=== PATIENT | female | born 1940 | race Caucasian/White ===

== ENCOUNTER → 2016-09-04 | Outpatient (CLI) | payer MEDICARE, BC ==
--- NOTE | 2016-09-04 11:59 | XR ---
EXAMINATION TYPE: XR chest 2V DATE OF EXAM: 09/04/2016 11:54 AM COMPARISON: 03/09/2015 HISTORY: Annual physical FINDINGS: The lungs are clear and there is no pneumothorax, pleural effusion, or focal pneumonia. 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 Heart is enlarged. IMPRESSION: 1. No acute process.
[2016-09-04 12:09] LABS: CH 30.3; CHCM 32.8; HCT 41.9 % (34.0-46.0); HDW 2.48; HGB 13.6 gm/dL (11.4-16.0); MCH 30.2 pg (25.0-35.0); MCHC 32.5 g/dL (31.0-37.0); MCV 92.9 fL (80.0-100.0); Mean Platelet Volume 8.1; RBC 4.51 m/uL (3.80-5.40); RDW 13.6 % (11.5-15.5); WBC 8.7 k/uL (3.8-10.6)
[2016-09-04 12:45] LABS: ALT 34 U/L (9-52); AST 29 U/L (14-36); Alkaline Phosphatase 78 U/L (38-126); Anion Gap 11 mmol/L; Blood Urea Nitrogen 16 mg/dL (7-17); Calcium 9.5 mg/dL (8.4-10.2); Carbon Dioxide 27 mmol/L (22-30); Chloride 103 mmol/L (98-107); Cholesterol 218 mg/dL (<200); Glucose 242 mg/dL (74-99); HDL Cholesterol 62 mg/dL (40-60); Non-African American GFR(MDRD) >60 (>60 ml/min/1.73 sqM); Potassium 4.9 mmol/L (3.5-5.1); Sodium 141 mmol/L (137-145); Total Bilirubin 0.9 mg/dL (0.2-1.3); Total Protein 7.4 g/dL (6.3-8.2); Triglycerides 134 mg/dL (<150)
[2016-09-05 12:08] LABS: Hemoglobin A1C 8.3 % (4.2-6.1)
== END | disposition home or self-care (01) ==
LOC: LABWHC1 11:06
PROVIDERS: ATTEND Internal Medicine
DX: Z00.01 Encounter for general adult medical examination with abnormal findings (principal); I11.9 Hypertensive heart disease without heart failure; E11.9 Type 2 diabetes mellitus without complications; E03.9 Hypothyroidism, unspecified; K21.0 Gastro-esophageal reflux disease with esophagitis
CPT/HCPCS: 36415; 71020; 80053; 80061; 82043; 83036; 84439; 84443; 85027

== ENCOUNTER → 2016-09-06 | Outpatient (CLI) | payer MEDICARE, BC ==
--- NOTE | 2016-09-09 10:38 | MM ---
Reason for exam: screening (asymptomatic). Last mammogram was performed 1 year and 3 months ago. History: Patient is postmenopausal and history of other cancer. Benign excisional biopsy of the right breast, 1993. Physical Findings: A clinical breast exam by your physician is recommended on an annual basis and results should be correlated with mammographic findings. MG 3D Screening Mammo W/Cad Bilateral CC and MLO view(s) were taken. Prior study comparison: June 07, 2015, bilateral MG screening mammo w CAD. March 17, 2014, bilateral MG screening mammo w CAD. There are scattered fibroglandular densities. Finding: There are typically benign round, linear calcifications in the right breast. There is no discrete abnormality. Stable prominent vessels in the right breast subareolar level. ASSESSMENT: Benign, BI-RAD 2 RECOMMENDATION: Routine screening mammogram of both breasts in 1 year.
== END | disposition home or self-care (01) ==
LOC: RADMAMWWP 09:43
PROVIDERS: ATTEND Internal Medicine
DX: Z12.31 Encounter for screening mammogram for malignant neoplasm of breast (principal)
CPT/HCPCS: 77063; G0202

== ENCOUNTER → 2018-01-07 | Outpatient (CLI) | payer MEDICARE, BC ==
--- NOTE | 2018-01-08 11:34 | MM ---
Reason for exam: screening (asymptomatic). Last mammogram was performed 1 year and 4 months ago. History: Patient is postmenopausal and history of other cancer. Benign excisional biopsy of the right breast, 1993. Physical Findings: A clinical breast exam by your physician is recommended on an annual basis and results should be correlated with mammographic findings. MG Screening Mammo w CAD Bilateral CC and MLO view(s) were taken. Prior study comparison: September 06, 2016, bilateral MG 3d screening mammo w/cad. June 07, 2015, bilateral MG screening mammo w CAD. There are scattered fibroglandular densities. No suspicious abnormality. No significant changes when compared with prior studies. ASSESSMENT: Negative, BI-RAD 1 RECOMMENDATION: Routine screening mammogram of both breasts in 1 year.
== END | disposition home or self-care (01) ==
LOC: RADMAMWWP 14:41
PROVIDERS: ATTEND Internal Medicine
DX: Z12.31 Encounter for screening mammogram for malignant neoplasm of breast (principal)
CPT/HCPCS: 77067

== ENCOUNTER → 2018-05-13 | Outpatient (CLI) | payer MEDICARE, BC ==
[2018-05-13 10:17] LABS: HCT 40.1 % (34.0-46.0); HGB 12.3 gm/dL (11.4-16.0); MCH 28.2 pg (25.0-35.0); MCHC 30.7 g/dL (31.0-37.0); MCV 91.9 fL (80.0-100.0); Mean Platelet Volume 7.5; Platelet Count 222 k/uL (150-450); RBC 4.36 m/uL (3.80-5.40); RDW 14.1 % (11.5-15.5); WBC 6.9 k/uL (3.8-10.6)
[2018-05-13 10:32] LABS: ALT 27 U/L (9-52); AST 45 U/L (14-36); Albumin 3.9 g/dL (3.5-5.0); Alkaline Phosphatase 56 U/L (38-126); Anion Gap 8 mmol/L; Blood Urea Nitrogen 10 mg/dL (7-17); Calcium 9.1 mg/dL (8.4-10.2); Carbon Dioxide 24 mmol/L (22-30); Chloride 109 mmol/L (98-107); Cholesterol 204 mg/dL (<200); Glucose 122 mg/dL (74-99); HDL Cholesterol 44 mg/dL (40-60); LDL Cholesterol,Calculated 127 mg/dL (0-99); Potassium 4.2 mmol/L (3.5-5.1); Sodium 141 mmol/L (137-145); Total Bilirubin 0.7 mg/dL (0.2-1.3); Total Protein 7.5 g/dL (6.3-8.2); Triglycerides 167 mg/dL (<150)
[2018-05-13 19:12] LABS: Hemoglobin A1C 6.7 % (4.0-6.0)
== END | disposition home or self-care (01) ==
LOC: LABWHC1 09:43
PROVIDERS: ATTEND Internal Medicine
DX: I11.9 Hypertensive heart disease without heart failure (principal); E11.9 Type 2 diabetes mellitus without complications; E03.9 Hypothyroidism, unspecified; E78.2 Mixed hyperlipidemia
CPT/HCPCS: 36415; 80053; 80061; 83036; 84439; 84443; 85027

== ENCOUNTER 2018-10-20 08:53 | Day surgery (SDC) | payer MEDICARE, BC ==
[2018-10-20 09:16] VITALS: RESP 16
[2018-10-20 09:33] LABS: Glucose,Whole Blood 141 mg/dL (75-99)
[2018-10-20 10:12] VITALS: PULSE 59; TEMP 97.9
[2018-10-20 11:05] VITALS: BP 152/78
--- NOTE | 2018-10-20 13:24 | US ---
EXAMINATION TYPE: US FNA first lesion, US biopsy thorax or neck DATE OF EXAM: 10/20/2018 HISTORY: Left chest mass, metastatic melanoma. FINDINGS: Maximal barrier technique was utilized. The skin overlying a suitable path to the patient' s mass was localized in the upper anterior left chest with ultrasound and the overlying skin prepped and draped. Ultrasound was utilized with sterile technique. Lidocaine was used for local anesthesia . 23-gauge needle was advanced under direct ultrasound guidance into the lesion and aspirated specim en submitted to cytology. A skin roberto was made with a scalpel. An 18-gauge needle was advanced under direct ultrasound guidance and core specimen obtained of the mass. Specimen submitted in formalin t o Pathology. Following the procedure, hemostasis achieved and the patient is discharged in stable co ndition without complication. IMPRESSION:STATUS POST ULTRASOUND GUIDED FINE-NEEDLE ASPIRATION AND CORE BIOPSY OF left chest wall IGNACIA WILLIAM, PATHOLOGY IS PENDING. THIS PROCEDURE IS PERFORMED BY THE UNDERSIGNED.
== END 2018-10-20 11:00 | disposition home or self-care (01) ==
LOC: RADPROMAIN 08:53
PROVIDERS: ATTEND Dermatology MOHS-Micrographic Surgery
DX: C79.89 Secondary malignant neoplasm of other specified sites (principal); Z85.820 Personal history of malignant melanoma of skin
CPT/HCPCS: 10005; 20206; 21550; 76942; 88173; 88305; 88341; 88342

== ENCOUNTER → 2018-10-31 | Outpatient (CLI) | payer MEDICARE, BC | LOC: RADPETMAIN 08:42 | PROVIDERS: ATTEND Internal Medicine Hematology & Oncology | DX: Z53.9 Procedure and treatment not carried out, unspecified reason (principal) ==

== ENCOUNTER → 2018-11-07 | Outpatient (CLI) | payer MEDICARE, BC ==
--- NOTE | 2018-11-09 10:40 | PE ---
Nuclear medicine PET/CT history: Melanoma, initial Patient received 13.3 mCi F-18 FDG intravenously and delayed whole-body scanning was performed. Local ization and attenuation correction CT scan was performed. Correlation to recent biopsy 10/20/2018. Neck and chest: At the site of patient's prior biopsy there is associated hypermetabolic uptake, soft tissue mass measures approximately 3.8 x 3.8 cm, SUV is 23.5. A small soft tissue node is present in the supraclavicular region on axial image 68 and shows some associated hypermetabolic uptake, SUV 8. 6. There is no mediastinal, axillary, or hilar adenopathy. No evident lung mass. No pleural pericardial effusion. Abdomen pelvis: No suspicious hypermetabolic uptake. No evident mass or retroperitoneal adenopathy. U ptake along the colon is likely physiologic. Osseous structures are within normal limits. Extremities show some muscular uptake, there is uptake along the region of the insertion of the Achil les tendon on the left, uptake is asymmetric and increased in left lower extremity but not felt to be suspicious. IMPRESSION: Localized foci of hypermetabolic uptake in the left upper chest as described.
== END | disposition home or self-care (01) ==
LOC: RADPETMAIN 16:19
PROVIDERS: ATTEND Internal Medicine Hematology & Oncology
DX: C43.59 Malignant melanoma of other part of trunk (principal)
CPT/HCPCS: 78816; A9552

== ENCOUNTER → 2018-12-01 | Outpatient (CLI) | payer MEDICARE, BC ==
[2018-12-01 12:09] LABS: HCT 39.8 % (34.0-46.0); HGB 12.9 gm/dL (11.4-16.0); MCH 29.7 pg (25.0-35.0); MCHC 32.4 g/dL (31.0-37.0); MCV 91.6 fL (80.0-100.0); Mean Platelet Volume 7.2; Platelet Count 173 k/uL (150-450); RBC 4.35 m/uL (3.80-5.40); RDW 14.8 % (11.5-15.5); WBC 6.2 k/uL (3.8-10.6)
[2018-12-01 16:33] LABS: Albumin 3.7 g/dL (3.80-4.90); Albumin/Globulin Ratio 1.42 (1.60-3.17); Anion Gap 8.5 mmol/L (4.00-12.00); Calcium 8.3 mg/dL (8.7-10.3); Carbon Dioxide 30.5 mmol/L (21.6-31.8); Globulin 2.6 g/dL (1.6-3.3); LDL Cholesterol,Calculated 100.8 mg/dL (0.0-131.0); Potassium 3.9 mmol/L (3.5-5.5); Total Bilirubin 0.8 mg/dL (0.2-1.2); Total Protein 6.3 g/dL (6.2-8.2); VLDL Calculation 32.2 mg/dL (5.00-40.00)
[2018-12-01 16:40] LABS: T4, Free (Free Thyroxine) 1.2 ng/dL (0.80-1.80)
[2018-12-01 18:21] LABS: Hemoglobin A1C 6.4 % (4.0-6.0)
== END | disposition home or self-care (01) ==
LOC: LABWHC1 09:51
PROVIDERS: ATTEND Internal Medicine
DX: Z00.00 Encounter for general adult medical examination without abnormal findings (principal); E11.9 Type 2 diabetes mellitus without complications; I11.9 Hypertensive heart disease without heart failure; E03.9 Hypothyroidism, unspecified; E66.1 Drug-induced obesity
CPT/HCPCS: 36415; 80053; 80061; 82043; 82570; 83036; 84439; 84443; 85027

== ENCOUNTER → 2020-11-22 | Outpatient (CLI) | payer MEDICARE, BC | END | disposition home or self-care (01) | LOC: LABWHC1 13:00 | PROVIDERS: ATTEND Nurse Practitioner Family | DX: R19.7 Diarrhea, unspecified (principal) | CPT/HCPCS: 83630; 87045; 87046; 87324; 87328; 87329 ==